=== PATIENT | male | born 1950 | race Caucasian/White ===

== ENCOUNTER → 2016-04-15 | Outpatient (CLI) | payer MEDICARE, OTHER | LOC: OD 15:46 | PROVIDERS: ATTEND Urology | DX: N40.1 Benign prostatic hyperplasia with lower urinary tract symptoms (principal); E29.1 Testicular hypofunction; I10 Essential (primary) hypertension | CPT/HCPCS: 36415; 84153; 84403 ==

== ENCOUNTER → 2016-05-02 | Outpatient (CLI) | payer MEDICARE, OTHER ==
[2016-05-05 09:39] LABS: PROSTATE SPECIFIC ANTIGEN 12.7 ng/mL (0.0-4.0); PSA % FREE 6.1 % (.); PSA FREE 0.78 ng/mL
== END ==
LOC: OD 15:24
PROVIDERS: ATTEND Urology
DX: N40.1 Benign prostatic hyperplasia with lower urinary tract symptoms (principal); I10 Essential (primary) hypertension; R97.20 Elevated prostate specific antigen [PSA]
CPT/HCPCS: 36415; 84154

== ENCOUNTER → 2016-06-06 | Outpatient (CLI) | payer MEDICARE, OTHER ==
[2016-06-08 17:43] LABS: PROSTATE SPECIFIC ANTIGEN 13.3 ng/mL (0.0-4.0); PSA % FREE 5.8 % (.); PSA FREE 0.77 ng/mL
== END ==
LOC: OD 14:19
PROVIDERS: ATTEND Urology
DX: N40.1 Benign prostatic hyperplasia with lower urinary tract symptoms (principal); I10 Essential (primary) hypertension; E29.1 Testicular hypofunction; R97.20 Elevated prostate specific antigen [PSA]
CPT/HCPCS: 36415; 84154; 84403

== ENCOUNTER 2016-12-30 09:33 | Emergency (ER) | payer MEDICARE, OTHER ==
[2016-12-30] MEDS ORDERED: NORMAL SALINE 1000 ML 1,000 ML IV ONE (09:39)
[2016-12-30] MEDS ORDERED: MORPHINE SULFATE 10 MG/ML INJ IV ONE (09:39)
--- NOTE | 2016-12-30 09:39 | ER Document Report ---
ED General - General Stated Complaint: DIZZINESS Time Seen by Provider: 12/30/16 09:35 Mode of Arrival: Ambulatory Information source: Patient Notes: 66-year-old male history of prostate cancer who was at outpatient going to get labs passed out twice. Patient notes he stood up and got lightheaded dizzy and syncopized. Patient admits neck pain. Patient denies any chest pain shortness breath difficulty breathing TRAVEL OUTSIDE OF THE [place] IN LAST 30 DAYS: No - HPI Onset: Just prior to arrival Onset/Duration: Sudden Quality of pain: Achy Severity: Mild Pain Level: 1 Associated symptoms: Other Exacerbated by: Denies Relieved by: Denies Similar symptoms previously: Yes Recently seen / treated by doctor: Yes Past Medical History - Social History Smoking Status: Never Smoker Cigarette use (# per day): No Chew tobacco use (# tins/day): No Smoking Education Provided: No Family History: Reviewed & Not Pertinent - Past Medical History Cardiac Medical History: Reports: Hx Hypercholesterolemia, Hx Hypertension GI Medical History: Reports: Hx Ulcer Musculoskeltal Medical History: Reports Hx Arthritis Past Surgical History: Reports: Hx Abdominal Surgery, Hx Herniorrhaphy Review of Systems - Review of Systems Notes: REVIEW OF SYSTEMS: CONSTITUTIONAL : Denies fever, chills, or sweats. Denies recent illness. EENT: Denies eye, ear, throat, or mouth pain or symptoms. Denies nasal or sinus congestion or discharge. Denies throat, tongue, or mouth swelling or difficulty swallowing. CARDIOVASCULAR: Denies chest pain. Denies palpitations or racing or irregular heart beat. Denies ankle edema. RESPIRATORY: Denies cough, cold, or chest congestion. Denies shortness of breath, difficulty breathing, or wheezing. GASTROINTESTINAL: Denies abdominal pain or distention. Denies nausea, vomiting , or diarrhea. Denies blood in vomitus, stools, or per rectum. Denies black, tarry stools. Denies constipation. GENITOURINARY: Denies difficulty urinating, painful urination, burning, frequency, blood in urine, or discharge. MUSCULOSKELETAL: Denies back or neck pain or stiffness. Denies joint pain or swelling. SKIN: Denies rash, lesions or sores. HEMATOLOGIC : Denies easy bruising or bleeding. LYMPHATIC: Denies swollen, enlarged glands. NEUROLOGICAL: Admits to sudden dizziness syncope PSYCHIATRIC: Denies anxiety or stress. Denies depression, suicidal ideation, or homicidal ideation. ALL OTHER SYSTEMS REVIEWED AND NEGATIVE. Dictation was performed using [employer] voice recognition software PHYSICAL EXAMINATION: GENERAL: Well-appearing, well-nourished and in no acute distress. HEAD: Atraumatic, normocephalic. EYES: Pupils equal round and reactive to light, extraocular movements intact, sclera anicteric, conjunctiva are normal. ENT: Nares patent, oropharynx clear without exudates. Moist mucous membranes. NECK: Admits to neck tenderness on palpation LUNGS: Breath sounds clear to auscultation bilaterally and equal. No wheezes rales or rhonchi. HEART: Regular rate and rhythm without murmurs ABDOMEN: Soft, nontender, nondistended abdomen. No guarding, no rebound. No masses appreciated. Musculoskeletal: Normal range of motion, no pitting or edema. No cyanosis. NEUROLOGICAL: Cranial nerves grossly intact. Normal speech, normal gait. Normal sensory, motor exams PSYCH: Normal mood, normal affect. SKIN: Warm, Dry, normal turgor, no rashes or lesions noted. Physical Exam - Vital signs Vitals: Resp BP Pulse Ox 15 112/78 99 12/30/16 09:40 12/30/16 09:40 12/30/16 09:40 Course - Re-evaluation Re-evalutation: 12/30/16 09:38 I believe patient had orthostatic hypotension causing syncope, he is immediately post in a c-collar sent for imaging 12/30/16 11:41 ct imaging noted no acute abnormality. 12/30/16 13:14 It is noted patient is on a beta-[place] this would be consistent with the bradycardia otherwise patient looks well is in no distress was given IV fluids and will be discharged home with cardiology follow-up After performing a Medical Screening Examination, I estimate there is LOW risk for INTRACRANIAL HEMORRHAGE, ISCHEMIC CVA, MALIGNANT DYSRHYTHMIA, ACUTE CORONARY SYNDROME, MENINGITIS, PULMONARY EMBOLISM, or SEPSIS thus I consider the discharge disposition reasonable. I have reevaluated this patient multiple times and no significant life threatening changes are noted. The patient and I have discussed the diagnosis and risks, and we agree with discharging home with close follow-up with the understanding that symptoms and presentations can change. We also discussed returning to the Emergency Department immediately if new or worsening symptoms occur. We have discussed the symptoms which are most concerning (e.g., changing or worsening pain, weakness, vomiting, fever) that necessitate immediate return. - Vital Signs Vital signs: Temp Pulse Resp BP Pulse Ox 15 109/72 100 12/30/16 13:01 12/30/16 13:01 12/30/16 13:01 - Laboratory Result Diagrams: 12/30/16 09:50 12/30/16 09:50 Laboratory results interpreted by me: 12/30/16 09:50 Glucose 153 H - Diagnostic Test Radiology reviewed: Image reviewed, Reports reviewed - EKG Interpretation by Me EKG shows normal: Sinus rhythm, Continental, Intervals, QRS Complexes Discharge - Discharge Clinical Impression: Dizziness, Orthostatic syncope Condition: Stable Disposition: HOME, SELF-CARE Instructions: Orthostatic Hypotension ([facility]), Syncopal Episode ([facility]) Prescriptions: Oxycodone HCl [Oxycodone HCl 10 MG Tablet] 1 - 2 tab PO Q6H PRN #15 tablet PRN Reason: PAIN Oxycodone HCl [Oxycodone HCl 10 MG Tablet] 1 - 2 tab PO Q6H PRN #15 tablet PRN Reason: PAIN Referrals: LETY VILLALBA PA [Primary Care Provider] - Follow up as needed CURTIS TEAGUE MD [ACTIVE STAFF] - Follow up tomorrow
[2016-12-30 10:05] LABS: ABSOLUTE BASOPHILS # (AUTO) 0.1 10^3/uL (0.0-0.2); ABSOLUTE EOSINOPHILS # (AUTO) 0.2 10^3/uL (0.0-0.6); ABSOLUTE LYMPHOCYTES (AUTO) 1.2 10^3/uL (0.5-4.7); ABSOLUTE MONOCYTES (AUTO) 0.9 10^3/uL (0.1-1.4); ABSOLUTE NEUT (AUTO) 5.2 10^3/uL (1.7-8.2); BASOPHILS % (AUTO) 0.7 % (0-2); EOSINOPHILS % (AUTO) 2.3 % (0-6); HEMATOCRIT 40.6 % (37.9-51.0); HEMOGLOBIN 13.7 g/dL (13.5-17.0); HGB HCT DIFFERENCE 0.5; LYMPHOCYTES % (AUTO) 15.8 % (13-45); MEAN CORPUSCULAR HEMOGLOBIN 30.5 pg (27.0-33.4); MEAN CORPUSCULAR HGB CONC 33.7 g/dL (32.0-36.0); MEAN CORPUSCULAR VOLUME 91 fl (80-97); MONOCYTES % (AUTO) 11.8 % (3-13); RED BLOOD COUNT 4.48 10^6/uL (4.35-5.55); SEGMENTED NEUTROPHILS % (AUTO) 69.4 % (42-78); WHITE BLOOD COUNT 7.5 10^3/uL (4.0-10.5)
--- NOTE | 2016-12-30 10:24 | RADIOLOGY REPORT (SQ) ---
EXAM DESCRIPTION: CT HEAD WITHOUT COMPLETED DATE/TIME: 12/30/2016 10:12 am REASON FOR STUDY: syncope COMPARISON: None. TECHNIQUE: Axial images acquired through the brain without intravenous contrast. Images reviewed wi th bone, brain and subdural windows. Images stored on PACS. All CT scanners at this facility use dose modulation, iterative reconstruction, and/or weight based d osing when appropriate to reduce radiation dose to as low as reasonably achievable (ALARA). [facility]: Dose Right [facility]: CareDose [facility]: Dose Right [facility]: Teradose 4D [facility]: [employer] RADIATION DOSE: Up-to-date CT equipment and radiation dose reduction techniques were employed. CTDIv ol: 64.6 mGy. DLP: 1163 mGy-cm. mGy. LIMITATIONS: None. FINDINGS: VENTRICLES: Prominent. CEREBRUM: No masses. No hemorrhage. No midline shift. Areas of low density in the white matter mos t likely due to chronic micro-vascular ischemic change. No evidence for acute infarction. CEREBELLUM: No masses. No hemorrhage. No alteration of density. No evidence for acute infarction. EXTRAAXIAL SPACES: Mild age-related involutional change. No fluid collections. No masses. ORBITS AND GLOBE: No intra- or extraconal masses. Normal contour of globe without masses. CALVARIUM: No fracture. PARANASAL SINUSES: No fluid or mucosal thickening. SOFT TISSUES: No mass or hematoma. OTHER: No other significant finding. IMPRESSION: MILD CHRONIC CHANGES OF ATROPHY AND MICROVASCULAR ISCHEMIA. NO ACUTE PROCESS. EVIDENCE OF ACUTE STROKE: NO. TECHNICAL DOCUMENTATION: JOB ID: [id number] Quality ID # [id number]: Final reports with documentation of one or more dose reduction techniques (e.g., Au tomated exposure control, adjustment of the mA and/or kV according to patient size, use of iterative reconstruction technique) 2010 [employer]- All Rights Reserved
--- NOTE | 2016-12-30 10:27 | RADIOLOGY REPORT (SQ) ---
EXAM DESCRIPTION: CT CERVICAL SPINE WITHOUT COMPLETED DATE/TIME: 12/30/2016 10:12 am REASON FOR STUDY: syncope COMPARISON: None. TECHNIQUE: Axial images acquired through the cervical spine without intravenous contrast. Images re viewed with lung, soft tissue and bone windows. Reconstructed coronal and sagittal MPR images review ed. Images stored on PACS. All CT scanners at this facility use dose modulation, iterative reconstruction, and/or weight based d osing when appropriate to reduce radiation dose to as low as reasonably achievable (ALARA). [facility]: Dose Right [facility]: CareDose [facility]: Dose Right [facility]: Teradose 4D [facility]: [employer] RADIATION DOSE: Up-to-date CT equipment and radiation dose reduction techniques were employed. CTDIv ol: 17.7 mGy. DLP: 347 mGy-cm. mGy. LIMITATIONS: None. FINDINGS: ALIGNMENT: Anatomic. MINERALIZATION: Normal. VERTEBRAL BODIES: No fractures or dislocation. Uncovertebral osteophytes are present at multiple lev els. DISCS: Disc spaces are narrowed from C3 to T1. Moderate to severe foraminal stenoses are present mul tiple levels. The greatest degree of stenosis is on the right side at C4-5 and C5-6 secondary to unc overtebral osteophytes. FACETS, LATERAL MASSES, POSTERIOR ELEMENTS: Mild hypertrophic facet changes are present in the mid ce rvical spine. Posterior elements are intact there are calcifications in the ligamentum nuchae sugges ting prior ligamentous injury. HARDWARE: None in the spine. VISUALIZED RIBS: No fractures. LUNG APICES AND SOFT TISSUES: No significant or acute findings. OTHER: No other significant finding. IMPRESSION: Multilevel degenerative disc disease and spondylosis. Mild facet arthropathy. TECHNICAL DOCUMENTATION: JOB ID: [id number] Quality ID # [id number]: Final reports with documentation of one or more dose reduction techniques (e.g., Au tomated exposure control, adjustment of the mA and/or kV according to patient size, use of iterative reconstruction technique) 2010 [employer]- All Rights Reserved
[2016-12-30 10:36] LABS: CREATINE KINASE MB 0.74 ng/mL (<4.55); TROPONIN I < 0.012 ng/mL
[2016-12-30 10:43] LABS: ALANINE AMINOTRANSFERASE 64 U/L (21-72); ALBUMIN 4.3 g/dL (3.5-5.0); ALKALINE PHOSPHATASE 59 U/L (38-126); ANION GAP 12 (5-19); ASPARTATE AMINO TRANSFERASE 33 U/L (17-59); BILIRUBIN,DIRECT 0.4 mg/dL (0.0-0.4); BILIRUBIN,TOTAL 0.9 mg/dL (0.2-1.3); BLOOD UREA NITROGEN 18 mg/dL (7-20); CALCIUM 9.9 mg/dL (8.4-10.2); CARBON DIOXIDE 28 mmol/L (22-30); CHLORIDE 105 mmol/L (98-107); CREATINE KINASE 71 U/L (55-170); CREATININE RESULT 1.05 mg/dL (0.52-1.25); GLUCOSE 153 mg/dL (75-110); POTASSIUM 3.7 mmol/L (3.6-5.0); SODIUM 144.8 mmol/L (137-145); TOTAL PROTEIN 6.9 g/dL (6.3-8.2)
[2016-12-30 13:06] VITALS: BP 109/72
== END 2016-12-30 13:05 | disposition home or self-care (01) ==
LOC: ER 09:33
DX: R55 Syncope and collapse (principal); M54.2 Cervicalgia; I10 Essential (primary) hypertension; Z79.899 Other long term (current) drug therapy; Z85.46 Personal history of malignant neoplasm of prostate
CPT/HCPCS: 99284; 96361; 96374; 36415; 82553; 82550; 85025; 80053; 84484; 70450; 72125; J2270; J7030

== ENCOUNTER → 2016-12-31 | Outpatient (CLI) | payer MEDICARE, OTHER | LOC: LAB 08:50 | PROVIDERS: ATTEND Radiology Radiation Oncology | DX: C61 Malignant neoplasm of prostate (principal) | CPT/HCPCS: 84153 ==

== ENCOUNTER → 2017-08-12 | Outpatient (CLI) | payer MEDICARE, OTHER | LOC: OD 13:14 | PROVIDERS: ATTEND Radiology Radiation Oncology | DX: C61 Malignant neoplasm of prostate (principal); R97.20 Elevated prostate specific antigen [PSA] | CPT/HCPCS: 36415; 84153 ==